=== PATIENT | male | born 1995 | race Caucasian/White ===

== ENCOUNTER → 2018-11-27 11:10 | Outpatient (CLI) | payer MEDICAID, SELFPAY ==
[2016-10-02 15:35] VITALS: BMI 21.6
[2018-11-29 12:17] LABS: Lamotrigine (Lamictal) Level 10.3 ug/mL (2.0-20.0); Topiramate 10.8 ug/mL (2.0-25.0)
== END ==
PROVIDERS: Referring Provider Psychiatry & Neurology Neurology; Visit Provider Psychiatry & Neurology Neurology
DX: G40.019 Localization-related (focal) (partial) idiopathic epilepsy and epileptic syndromes with seizures of localized onset, intractable, without status epilepticus (principal)
CPT/HCPCS: 36415; 80201; 82542

== ENCOUNTER → 2019-12-03 15:25 | Outpatient (CLI) | payer MEDICAID, SELFPAY ==
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
== END ==
PROVIDERS: Referring Provider Psychiatry & Neurology Neurology; Visit Provider Psychiatry & Neurology Neurology
DX: G40.019 Localization-related (focal) (partial) idiopathic epilepsy and epileptic syndromes with seizures of localized onset, intractable, without status epilepticus (principal)

== ENCOUNTER → 2020-01-13 14:44 | Outpatient (CLI) | payer MEDICAID, SELFPAY ==
--- NOTE | 2020-01-13 14:49 | CT_ITS ---
STUDY: CT BRAIN WITHOUT CONTRAST REASON FOR EXAM: Male, 24 years old. Epilepsy with seizures RADIATION DOSAGE (If Supplied By Facility): CTDIvol = ( 44.99 ) mGy, DLP = ( 849.54 ) mGycm TECHNIQUE: Transaxial CT imaging of the brain was performed without administration of intravenous contrast material. Individualized dose optimization techniques were used for this CT. COMPARISON: No relevant priors. FINDINGS: Normal soft tissue structures. Normal calvarium. Normal size ventricles and extra-axial spaces for the patient''s age. Normal white matter tracts of the cerebral hemispheres. Normal basal ganglia and thalami. Normal brainstem. Normal cerebellum. There is no intracranial hemorrhage. There are no findings of an acute ischemic infarction. Normal visualized paranasal sinuses. There is very limited pneumatization of the mastoids. There are small collections of cerumen in the bilateral external auditory canals. CT/Brain/Head without Contrast IMPRESSION: Normal unenhanced CT scan of the brain. Electronically Signed: Alejandro Hill MD at 16:44 EDT , Service support ,
== END ==
PROVIDERS: Referring Provider Psychiatry & Neurology Neurology; Visit Provider Psychiatry & Neurology Neurology
DX: G40.019 Localization-related (focal) (partial) idiopathic epilepsy and epileptic syndromes with seizures of localized onset, intractable, without status epilepticus (principal)
CPT/HCPCS: 70450

== ENCOUNTER 2021-02-10 18:40 | Emergency (ER) | payer MEDICAID, SELFPAY ==
[2021-02-10 18:41] VITALS: BP 127/79; PULSE 130; RESP 18; TEMP 36.2; O2SAT 99; BMI 30.7
--- NOTE | 2021-02-10 18:47 | ED.RN ---
THIS RN CALLED PT PARENTS TO VERIFY THAT PT HAS NO ALLERGIES. PHONE NUMBER [phone].
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
--- NOTE | 2021-02-10 20:17 | CM.ED ---
SOCIAL WORK Crisis updated on patient. Crisis to be contacted once patient is medically cleared. Malka Hernandez, DISC INSPECTOR, PERINATAL COORDINATOR
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
[2021-02-10 21:29] VITALS: RESP 18
[2021-02-10 21:31] LABS: Absolute Lymphocyte Count 1.45 X10^3/uL (0.83-4.51); Absolute Neutrophil Count 5.6 X10^3/uL (2.0-7.7); Basophil# 0.02 X10^3/uL; Basophil% 0.3 % (0-1); Eosinophil# 0.09 X10^3/uL; Eosinophils% 1.2 % (0-5); Hematocrit 41.2 % (40-54); Lymphocyte # 1.45 X10^3/ul (0.83-4.51); Lymphocyte % 18.8 % (19-41); Mean Corpuscular Hgb 28.3 pg (27.0-32.0); Mean Corpuscular Volume 83.4 fL (80-94); Mean Platelet Vol. 9.4 fl (6.2-12.0); Monocyte# 0.52 X10^3/uL; Monocyte% 6.7 % (0-10); NRBC Flagged by Analyzer 0 % (0-5); Neutrophil # 5.58 X10^3/uL (2.7-7.7); Neutrophil % 72.4 % (47-70); Platelet Count 256 K/mm3 (150-450); RBC Distribution Width CV 12.7 % (11.6-14.6); RBC Distribution Width SD 38.5 fl (35.1-43.9); Red Blood Count 4.94 M/mm3 (4.6-6.2); White Blood Count 7.7 K/mm3 (4.4-11.0)
[2021-02-10 21:44] LABS: Alcohol, Blood (Medical)-Serum < 3.0 mg/dL
[2021-02-10 21:45] LABS: Anion Gap 8 (5-15); BUN 16 mg/dL (7-18); BUN/Creat Ratio 14.5 RATIO (10-20); Calcium,Total 8.5 mg/dL (8.5-10.1); Chloride 113 mmol/L (98-107); EST Glomerular Filtration Rate 86 mL/min (>60); Est Glom Filt Rate - Afr Amer 105 mL/min (>60); Estimated Creatinine Clearance 92.64 ml/min; Glucose 96 mg/dL (74-106); Potassium 3.6 mmol/L (3.5-5.1); Sodium Level 141 mmol/L (136-145)
[2021-02-10] MEDS: Haloperidol Lactate 5 MG/ML Vial 10 MG IM (22:44)
[2021-02-10] MEDS: LORazepam 2 MG/ML Syringe 1 MG IM (22:44)
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
[2021-02-10 23:06] VITALS: RESP 18
[2021-02-11] VITALS (18 sets, daily range): BP systolic 124–142; BP diastolic 60–96; PULSE 78–119; RESP 12–18; O2SAT 93–96
[2021-02-11 00:21] LABS: Amphetamine Urine VISTA POSITIVE (<1000 ng/mL); Barbiturate Urine VISTA NEGATIVE (< 200 ng/mL); Benzodiazepine Urine VISTA NEGATIVE (< 200 ng/mL); Cocaine Urine VISTA NEGATIVE (< 300 ng/mL); Ecstacy Urine VISTA NEGATIVE (< 500 ng/mL); Methadone Urine VISTA NEGATIVE (< 300 ng/mL); PCP Urine VISTA NEGATIVE (< 25 ng/mL); THC Urine VISTA NEGATIVE (< 50 ng/mL); Vista UDS pH Range 5
--- NOTE | 2021-02-11 01:01 | ED.RN ---
CRISIS CALLED AND HE IS PENDING AT [facility]
--- NOTE | 2021-02-11 03:16 | ED.RN ---
PENDING AT [facility]
--- NOTE | 2021-02-11 07:42 | ED.RN ---
notified pt's fathercj that the pharmancy does not carry VYvance and asked the father if he could bring the med in for the pt and he said he would.
[2021-02-11] MEDS: Topiramate 200 MG Tablet PO (09:23)
[2021-02-11] MEDS: levETIRAcetam 500 MG Tablet PO ×2 (09:24→20:46)
[2021-02-11] MEDS: cloNIDine HCl 0.2 MG Tablet PO (09:24)
[2021-02-11] MEDS: lamoTRIgine 150 MG Tablet 300 MG PO ×2 (09:24→20:44)
[2021-02-11] MEDS: Pregabalin 50 MG Capsule 100 MG PO ×2 (09:25→20:45)
--- NOTE | 2021-02-11 10:29 | CM.ED ---
SOCIAL WORK Call to Crisis for update, spoke with Yessi. Per Yessi, spoke with patient's SSA through the Board of who reports unable to provide any assistance as they have not followed through with services. Yessi reports patient's IQ is 50. Referral has been made to [facility]. Malka Hernandez, DIRECTOR SUPPLY CHAIN, CLINICAL RESEARCH DIRECTOR
--- NOTE | 2021-02-11 11:04 | ED.RN ---
FATHER BROUGHT IN HOME MEDICATION VYVANSE. MEDICATION SENT TO PHARMACY AND ORDERS OBTAINED FOR MEDICATION DOSING.
[2021-02-11] MEDS: LORazepam 2 MG/ML Syringe 1 MG IM (12:55)
[2021-02-11] MEDS: Haloperidol Lactate 5 MG/ML Vial IM (12:55)
--- NOTE | 2021-02-11 15:42 | CM.ED ---
SOCIAL WORK Call to patient's father to discuss efforts in placement and denials by hospitals. Father in agreement to referral to [facility]. Father inquiring about options if patient denied. All questions answered. Referral called and faxed to [facility] at this time. Per Crisis, patient has been declined by [facility]. Malka Hernandez, GRAZING EXAMINER, ONCOLOGY PATIENT NAVIGATOR
--- NOTE | 2021-02-11 15:46 | CM.ED ---
SOCIAL WORK Received call from [facility]. All questions answered regarding patient. Intake to review with physician and get back to this worker. Malka Hernandez, BULLDOZER OPERATOR, SENIOR WATER RESOURCES ENGINEER
--- NOTE | 2021-02-11 16:24 | CM.ED ---
SOCIAL WORK Call to [facility] to check on status of referral. Patient has been denied. Call to Peri with Crisis to update. Peri to call and discuss with patient's father. Staff updated. Malka Hernandez MSW, MULTI CARE TECHNICIAN
--- NOTE | 2021-02-11 19:51 | CM.ED ---
SOCIAL WORK Case has been conferenced with Peri from Jorge Luis, Dr. Martinez and patient's father. Patient has been declined from multiple hospitals. Peri from Crisis spoke with patient's father and encouraged follow up with [facility] for support and services. Patient is calm and cooperative. Patient wanting mom and dad and wanting to return home. Patient denies any suicidal or homicidal ideation. Dr. Martinez to provide script for PRN Ativan. Peri to have Psych Services follow up with patient on Sunday and both [facility] and this check writer salesperson to follow up with [facility]. Call to patient's father to discuss the above. Father in agreement with plan and will be in to transport patient home. Staff updated. Script for Ativan to be filled here prior to discharge. Plan: Home with family Malka Hernandez MSW, ALUMNI COORDINATOR
[2021-02-11] MEDS: QUEtiapine 100 MG Tablet 150 MG PO (20:45)
--- NOTE | 2021-02-17 12:54 | CM.ED ---
SOCIAL WORK Follow up phone call made to [facility] Teacher, Ayleen Perez ([phone]). Per Ayleen, patient and family were seen and assessment process is started to provide services. Ayleen reports has also reached out to Psych Services through [facility] to assist patient and family. Malka Hernandez, JUNIOR STAFF ACCOUNTANT,SUPERVISOR REWORK
== END 2021-02-11 20:58 | disposition home or self-care (01) ==
PROVIDERS: Emergency Medicine; Emergency Provider Student in an Organized Health Care Education/Training Program
DX: F31.9 Bipolar disorder, unspecified (principal)
CPT/HCPCS: 36415; 80048; 80307; 82077; 85025; 87426; 96372; 99283

== ENCOUNTER 2024-02-02 20:15 | Emergency (ER) | payer MEDICAID, SELFPAY ==
[2024-02-02] VITALS (14 sets, daily range): BP systolic 100–136; BP diastolic 52–96; PULSE 98–165; RESP 13–120; TEMP 36.7–37.3; O2SAT 94–98; BMI 33.1
--- NOTE | 2024-02-02 20:20 | CT_ITS ---
STUDY: CT BRAIN WITHOUT CONTRAST REASON FOR EXAM: Male, 28 years old. seizures/status RADIATION DOSAGE (If Supplied By Facility): CTDIvol = ( 44.99 ) mGy, DLP = ( 880.47 ) mGycm TECHNIQUE: Transaxial CT imaging of the brain was performed without administration of intravenous contrast material. Individualized dose optimization techniques were used for this CT. COMPARISON: 01/13/2020. FINDINGS: Normal soft tissue structures. Normal calvarium. Normal size ventricles and extra-axial spaces for the patient''s age. Normal white matter tracts of the cerebral hemispheres. Normal basal ganglia and thalami. Normal brainstem. Normal cerebellum. There is no intracranial hemorrhage. There are no findings of an acute ischemic infarction. Normal visualized paranasal sinuses. CT/Brain/Head without Contrast IMPRESSION: Normal unenhanced CT scan of the brain. Electronically Signed: Meme Walsh MD at 21:45 EDT Reading Location ID and State: [id number] / Tel , Service support ,
--- NOTE | 2024-02-02 20:21 | EKG12_ITS ---
Test Reason : R/O SEIZURES Blood Pressure : / mmHG Vent. Rate : 149 BPM Atrial Rate : 149 BPM P-R Int : 130 ms QRS Dur : 090 ms QT Int : 282 ms P-R-T Axes : -03 122 029 degrees QTc Int : 444 ms Critical Test Result: High HR Sinus tachycardia Right axis deviation CAN NOT RULE OUT Inferior infarct , age undetermined ABNORMAL ECG Confirmed by Roberto Mckeon ([id number]), staff editor CHARLEEN WALLACE ([id number]) on 02/04/2024 1:46:10 PM Referred By: Confirmed By:Roberto Mckeon
--- NOTE | 2024-02-02 20:23 | EDS_ITS ---
HPI History of Present Illness Chief Complaint: Seizure Informant: patient, family and EMS Narrative Narrative: 28-year-old male brought by EMS for clustering seizures for the past 30 minutes. They aborted just prior to arrival by giving the patient Versed 5 mg IM. According to the sister who provides all of the history, he has a history of seizures, he has them not infrequently but has never clustered like this. She describes grand mal seizures that would stop and pause without the ability for him to recover and then go back into another 1. He has been compliant with his medications, he is given them by family members. His not had nighttime medications yet, presents just after 1999. Was sitting at home watching videos on his tablet when this occurred. No recent illness or head injury. No recent changes to his medications. No new [id number] or prescription medications. Follows with neurology at [facility] in [place]. Sister states he does not use any illicit substances and is pretty much at home being monitored by his family. [facility] Medical History Seizure Bipolar disorder Home Medications ?Medication ?Instructions ?Recorded ?Last Taken ?Type clonidine HCl 0.1 mg 0.2 mg PO DAILY 11/07/14 02/02/24 History tablet,extended release,12 hr lamotrigine 200 mg tablet,extended 200 mg PO BID 11/07/14 02/02/24 History release 24 hr (Lamictal XR) lisdexamfetamine 60 mg capsule 20 mg PO DAILY 11/07/14 02/02/24 History (Vyvanse) quetiapine 50 mg tablet (Seroquel) See Rx Instructions PO QHS 11/07/14 02/02/24 History benztropine 1 mg tablet 1 mg PO DAILY 02/11/21 02/02/24 History hydroxyzine HCl 25 mg tablet 25 mg PO BID 02/11/21 02/02/24 History levetiracetam 500 mg tablet 500 mg PO BID 02/11/21 02/02/24 History (Keppra) topiramate 200 mg tablet 200 mg PO Q12H 02/11/21 02/02/24 History clonazepam 1 mg tablet 1 mg PO BID PRN PRN anxiety 02/02/24 Unknown History Allergy/AdvReac Type Severity Reaction Status Date / Time No Known Allergies Allergy Verified 02/02/24 20:21 Family History no significant family his Surgical History no surgical history Social History Smoking Status: Never smoker EXAM Physical Exam Const Vital Signs: 02/02/24 20:18 02/02/24 21:55 02/02/24 22:56 Temperature 98.1 F 98.1 F 99.1 F Temperature Source Temporal Temporal Temporal Pulse Rate 132 H 115 H 101 H Respiratory Rate 35 H 120 H 15 Blood Pressure 135/68 H 115/79 115/79 Blood Pressure Mean 90 91 91 Pulse Ox 94 98 98 Oxygen Delivery Method Room Air Room Air Room Air Positive well nourished and well developed General Appearance ED: well developed and NAD HEENT Reports moist mucous membranes normocephalic and atraumatic Eyes PERRL and EOMs intact bilaterally Neck full ROM and supple Resp normal respiratory effort and clear to auscultation bilaterally Cardio regular rate, regular rhythm and no murmurs Rate: tachycardic GI non-tender and non-distended Auscultation: normoactive bowel sounds Palpation: soft Back/Spine no CVA tenderness General Back: other FROM Extremity normal to inspection General Extremety ED: Negative for edema, pulses abnormal or tenderness General Extremity: Negative for edema or pulses abnormal Neuro Neuro Narrative: Stuporous, spontaneous breathing with intact gag, but basically unresponsive otherwise upon arrival. Skin no rashes or lesions noted and no wounds MDM MDM MDM Narrative Medical decision making narrative: Patient was monitored closely and we obtained labs, urinalysis to rule out infection, and a CT of the brain to rule out intracranial bleed or other [employer] causes of status epilepticus. I reviewed the images of the CT as well as the result, and I agree with it, it is negative for any acute. His urine shows no signs of infection. He has a mild leukocytosis but his lactate is very high, which I suspect is probably causing his bicarb of only 6 and an elevated anion gap. He has some ANKIT. Unsure if this is causing his seizure activity or not. In the meantime I gave him a dose of IV levetiracetam 750 mg, and his nightly Lamictal although that is oral only and he is not awake enough to take it yet. I reevaluated him several times, he is now 1.5 hours into his stay, and he is coming around very slowly. He has purposeful movements of his arms, he is opening his eyes but not talking or following any commands. HR down to 115, no ectopy. Given the fact he has been so slow to come around with regards to his level of consciousness, discussing with hospitalist for admission. He is protecting his airway at this time and I do not think he needs to be intubated. Hospitalist does not want to admit him here, he thinks the patient needs continuous EEG monitoring and transfer to a higher level of care. I checked with [facility] both [facility] and [place] do not have continuous EEG monitoring and therefore will not accept the patient based on this recommendation. I checked on him again. He is more alert. He has some dysarthria but is trying to speak. He follows some commands and is moving both upper extremities. GCS now = 13. I discussed with [facility], they have 3 facilities that have continuous EEG monitoring and none of them have any beds and/or wait listing patients. Therefore I am checking with [facility] but in the meantime we will observe the patient in the ED. Patient apparently removed his own IV. He got about half of the Keppra. I am having nursing see if he can sip some water since he is alert now, and if so he is going to take the Lamictal and his home dose of Keppra 500 mg. He has had no further seizure activity clinically here thus far. ED observation started at 2300 on 02/02/24, for further recovery from postictal state and will repeat lactic acid after IVF and keppra infusion. Repeat HR is 101. History & Record Review Discussion w/independent historian: EMS personnel and Family Lab Data Attestation: I reviewed the patient's lab results. Labs: Laboratory Results - last 24 hr 02/02/24 02/02/24 20:45 21:05 WBC 13.5 H RBC 4.29 L Hgb 11.8 L Hct 38.6 L MCV 90.0 MCH 27.5 MCHC 30.6 L RDW Std Deviation 41.4 RDW Coeff of Sheyla 12.6 Plt Count 343 MPV 9.3 Neut % (Auto) Not Reportable Absolute Neuts (auto) 6.3 Absolute Lymphs (auto) 6.21 H Total Counted 100 Neutrophils % (Manual) 44 L Band Neutrophils % 3 Lymphocytes % (Manual) 46 H Monocytes % (Manual) 6 Eosinophils % (Manual) 1 Diff Path Review May foll Platelet Estimate ADEQUATE RBC Morphology NORM C+C Sodium 136 Potassium 4.0 Chloride 105 Carbon Dioxide 6.0 L* Anion Gap 25 H BUN 10 Creatinine 1.81 H Estim Creat Clear Calc 64.94 Est GFR (MDRD) Af Amer 58 L Est GFR (MDRD) Non-Af 48 L BUN/Creatinine Ratio 5.5 L Glucose 237 H Lactic Acid 17.9 H* Calcium 9.2 Urine Color Yellow Urine Clarity Clear Urine pH 5.0 Ur Specific [place] 1.025 Urine Protein 100 H Urine Glucose (UA) Normal Urine Ketones 5 H Urine Occult Blood 25 H Urine Nitrite Negative Urine Bilirubin 1 H Urine Urobilinogen 1 H Ur Leukocyte Esterase Negative Urine RBC 0 SEEN Urine WBC 0-5 SEEN Ur Squamous Epith Cells 0 SEEN Urine Bacteria 0 SEEN Urine Mucus 0 SEEN Radiography Diagnostic Testing: Clinical Impression(s) from Imaging Studies Brain CT 02/02/24 20:20 IMPRESSION: Normal unenhanced CT scan of the brain. Electronically Signed: Meme Walsh MD at 21:45 EDT , Rhythm Strip Rhythm Strip: Sinus Tach Rate: 120 Ectopy: None EKG Initial EKG: Attestation: I personally reviewed and interpreted this EKG as follows: Interpretation: No Acute Injury Pattern and Sinus Tachycardia Management Discussion w/another healthcare provider: Hospitalist Discharge Plan Triage Chief Complaint: Seizure ED Provider: Juan J Kaur Dx/Rx/DC Orders Clinical Impression: Recurrent seizures, Seizure disorder, Acute lactic acidosis, Lethargy, ANKIT (acute kidney injury) Prescriptions: No Action quetiapine [Seroquel] 50 MG tablet See Rx Instructions PO QHS Rx Instructions: 400mg orally at bedtime; 50mg 3 times a day. lisdexamfetamine [Vyvanse] 60 MG capsule 20 mg PO DAILY lamotrigine [Lamictal XR] 200 MG tablet extended release 24hr 200 mg PO BID clonidine HCl 0.1 MG tablet extended release 12 hr 0.2 mg PO DAILY levetiracetam [Keppra] 500 mg Tablet 500 mg PO BID benztropine 1 mg Tablet 1 mg PO DAILY hydroxyzine HCl 25 mg Tablet 25 mg PO BID topiramate 200 mg Tablet 200 mg PO Q12H clonazepam 1 mg tablet 1 mg PO BID PRN PRN (Reason: anxiety) Primary Care Provider: Care Physician,No Primary Referrals: Care Physician,No Primary [Primary Care Provider] - Print Language: Vietnamese
[2024-02-02] MEDS: 0.9% Normal Saline (1000mL) 1,000 ML 999 ML IV (20:44)
[2024-02-02 20:55] LABS: Hematocrit 38.6 % (40-54); Hemoglobin 11.8 g/dL (13.0-16.5); Mean Corp Hgb Conc 30.6 g/dL (32-36); Mean Corpuscular Hgb 27.5 pg (27.0-32.0); Mean Platelet Vol. 9.3 fl (6.2-12.0); POSITIVE COUNT YES; POSITIVE DIFFERENTIAL YES; POSITIVE MORPHOLOGY YES; Platelet Count 343 K/mm3 (150-450); RBC Distribution Width CV 12.6 % (11.6-14.6); RBC Distribution Width SD 41.4 fl (35.1-43.9); Red Blood Count 4.29 M/mm3 (4.6-6.2); White Blood Count 13.5 K/mm3 (4.4-11.0)
[2024-02-02 20:56] LABS: Differential Indicated MANUAL DIFF
[2024-02-02 21:11] LABS: Anion Gap 25 (5-15); BUN 10 mg/dL (7-18); BUN/Creat Ratio 5.5 RATIO (10-20); Calcium,Total 9.2 mg/dL (8.5-10.1); Chloride 105 mmol/L (98-107); Creatinine, Serum 1.81 mg/dL (0.70-1.30); EST Glomerular Filtration Rate 48 mL/min (>60); Est Glom Filt Rate - Afr Amer 58 mL/min (>60); Estimated Creatinine Clearance 64.94 ml/min; Glucose 237 mg/dL (74-106); Sodium Level 136 mmol/L (136-145)
[2024-02-02 21:14] LABS: Bacteria 0 SEEN /hpf (None Seen); Mucous, Urine 0 SEEN /hpf (<or=2+); Red Blood Cells-Urine 0 SEEN /hpf (0-5); Squamous Epithelial Cells - UA 0 SEEN /hpf (0-5)
[2024-02-02 21:16] LABS: Color, Urine Yellow (Yellow); Glucose, Dipstick Normal (Normal); Ketone-Dipstick 5 mg/dl (Negative); Leukocyte Esterase-Dipstick Negative /ul (Negative); Nitrite-Dipstick Negative (Negative); Occult Blood-Urine 25 /ul (Negative); Protein-Dipstick 100 mg/dl (Negative); Specific Gravity, Urine 1.025 (1.002-1.030); Urine Clarity Clear (Clear); Urine Urobilinogen 1 mg/dl (Normal)
[2024-02-02 21:17] LABS: Eosinophil 1 % (0-5); Lymphocyte 46 % (19-41); Monocyte 6 % (0-10); Neutrophil-Band 3 % (0-5); Neutrophil-Segmented 44 % (47-70); Total Cells Counted 100 (MANUAL DIFF)
[2024-02-02 21:18] LABS: Platelet Estimate ADEQUATE (ADEQ); Red Cell Morphology NORM C+C NORMAL (NORM C&C)
[2024-02-02 21:20] LABS: Absolute Lymphocyte Count 6.21 X10^3/uL (0.83-4.51); Absolute Neutrophil Count 6.3 X10^3/uL (2.0-7.7)
[2024-02-02 21:27] LABS: Urine Bilirubin Dipstick 1 mg/dL (Negative)
[2024-02-02 21:28] LABS: White Blood Cells 0-5 SEEN /hpf (0-5)
[2024-02-02 21:35] LABS: Lactic Acid 17.9 mmol/L (0.4-1.9)
[2024-02-02] MEDS: levETIRAcetam IV 750 MG in 0.9% Normal Saline (100mL Bag) 100 ML 430 MG IV (22:51)
[2024-02-02] MEDS: lamoTRIgine 150 MG Tablet 300 MG PO (23:51)
--- NOTE | 2024-02-02 23:51 | EKG12_ITS ---
Test Reason : REPEAT Blood Pressure : / mmHG Vent. Rate : 094 BPM Atrial Rate : 094 BPM P-R Int : 154 ms QRS Dur : 094 ms QT Int : 364 ms P-R-T Axes : 039 058 058 degrees QTc Int : 455 ms Normal sinus rhythm Normal ECG Confirmed by Roberto Mckeon ([id number]), newspaper or periodical editor CHARLEEN WALLACE ([id number]) on 02/04/2024 1:46:47 PM Referred By: Confirmed By:Roberto Mckeon
[2024-02-02] MEDS: levETIRAcetam 500 MG Tablet PO (23:57)
[2024-02-03] VITALS (18 sets, daily range): BP systolic 96–163; BP diastolic 55–127; PULSE 78–140; RESP 12–20; TEMP 36.6–36.7; O2SAT 94–100
[2024-02-03 00:27] LABS: Anion Gap 9 (5-15); BUN 12 mg/dL (7-18); BUN/Creat Ratio 7.7 RATIO (10-20); Calcium,Total 8.5 mg/dL (8.5-10.1); Chloride 109 mmol/L (98-107); Creatinine, Serum 1.56 mg/dL (0.70-1.30); EST Glomerular Filtration Rate 56 mL/min (>60); Est Glom Filt Rate - Afr Amer 68 mL/min (>60); Estimated Creatinine Clearance 75.34 ml/min; Glucose 112 mg/dL (74-106); Potassium 3.4 mmol/L (3.5-5.1); Sodium Level 137 mmol/L (136-145)
[2024-02-03 00:30] LABS: Lactic Acid 1.8 mmol/L (0.4-1.9)
[2024-02-03] MEDS: Ondansetron 4 MG/2 ML Vial IV (00:42)
[2024-02-03] MEDS: Midazolam 2 MG/2 ML Syringe IV (00:42)
[2024-02-03] MEDS: levETIRAcetam IV 1,000 MG/100 ML BAG 400 MG IV (00:50)
[2024-02-03] MEDS: 0.9% Normal Saline (1000mL) 1,000 ML 999 ML IV (00:51)
[2024-02-03 00:52] LABS: Reflex Lactate? Y
--- NOTE | 2024-02-03 09:25 | NURSING ---
Pt was up ambulating in room without difficulty when he suddenly threw himself on the floor, hit head on the door and obtained a lac to the R forehead. VS taken and stable, pt lifted back into bed w/ assistance of several staff members. Pt did not lose consciousness during event and no seizure activity noted. All monitoring equip remains in place. Dr. Romero notified. [facility] to be entered.
--- NOTE | 2024-02-03 10:15 | ED.RN ---
Patient forehead cleaned up with saline. Bacitracin and bandaide applied.
--- NOTE | 2024-02-03 11:09 | ED.RN ---
CALLED FOR BED UPDATE, STILL NO NEURO BED. WILL CALL WHEN THEY DO. REQUESTED UPDATED VITALS, READ THEM MOST RECENT VITAL SIGNS
--- NOTE | 2024-02-03 14:16 | ED.RN ---
PATIENT WANDERING AROUND ROOM IN ADULT DIAPER. SECURITY RUDI AND THIS RN TO HELP PATIENT SAFELY GET BACK INTO BED AND DRESSED IN HOSPITAL GOWN
--- NOTE | 2024-02-03 14:18 | ED.RN ---
Talia stenographer secretary called [facility]. Per them, they are at full capacity and have no idea if they will have discharges today.
--- NOTE | 2024-02-03 14:27 | HP.PCM.HOS_ITS ---
HPI - General General Date of Admission: 02/03/24 Date of Service: 02/03/24 Chief Complaint: Acute seizures HPI Narrative ABDIAZIZ COKER, with a past medical history of intellectual delay, anxiety, is a 28 M who presents following recurrent seizures at home. Much of the history was provided by the mother. He has a history of grand mal seizures. He has been compliant with all medications. At the time of the seizures he was watching videos on his tablet. No recent changes in medications, no infections, no new [id number] medications. He follows up with neurology at [facility] in [place]. He is on medications predominantly consisted of clonidine, lamotrigine 200 mg, Vyvanse, quetiapine, benztropine, hydroxyzine, levetiracetam, topiramate, clonazepam. At the time of evaluation in the ED, Pulse 79, respiratory rate 16, blood pressure 140/74, satting well on room air, WBC 13.5, lactic acid 1.8, hemoglobin 11.8, platelet 343 potassium 3.4, sodium 137, creatinine 1.5, glucose 112, CT head was normal For further evaluation and management he has been accepted for transfer to [facility] but because of bed unavailability, he is being admitted for further management. [facility] Medical History Seizure Bipolar disorder Home Medications ?Medication ?Instructions ?Recorded ?Last Taken ?Type clonidine HCl 0.1 mg 0.2 mg PO DAILY 11/07/14 02/02/24 History tablet,extended release,12 hr lamotrigine 200 mg tablet,extended 200 mg PO BID 11/07/14 02/02/24 History release 24 hr (Lamictal XR) lisdexamfetamine 60 mg capsule 20 mg PO DAILY 11/07/14 02/02/24 History (Vyvanse) quetiapine 50 mg tablet (Seroquel) See Rx Instructions PO QHS 11/07/14 02/02/24 History benztropine 1 mg tablet 1 mg PO DAILY 02/11/21 02/02/24 History hydroxyzine HCl 25 mg tablet 25 mg PO BID 02/11/21 02/02/24 History levetiracetam 500 mg tablet 500 mg PO BID 02/11/21 02/02/24 History (Keppra) topiramate 200 mg tablet 200 mg PO Q12H 02/11/21 02/02/24 History clonazepam 1 mg tablet 1 mg PO BID PRN PRN anxiety 02/02/24 Unknown History Allergy/AdvReac Type Severity Reaction Status Date / Time No Known Allergies Allergy Verified 02/02/24 20:21 Family History no significant family his Surgical History no surgical history Social History Smoking Status: Never smoker ROS Review of Systems ROS Unobtainable: due to encephalopathy, due to endotracheal tube, due to mental condition, due to mental status and other Vital Signs Vital Signs Vital Signs: 02/02/24 20:18 02/02/24 21:00 02/02/24 21:03 Temperature 98.1 F Temperature Source Temporal Pulse Rate 132 H 127 H Respiratory Rate 35 H 31 H Blood Pressure 135/68 H 100/52 L Blood Pressure Mean 90 68 Pulse Ox 94 Oxygen Delivery Method Room Air 02/02/24 21:15 02/02/24 21:30 02/02/24 21:45 Temperature Temperature Source Pulse Rate 128 H 124 H Respiratory Rate 28 H 26 H Blood Pressure 106/59 L 115/56 L 115/79 Blood Pressure Mean 72 73 89 Pulse Ox Oxygen Delivery Method 02/02/24 21:55 02/02/24 22:00 02/02/24 22:30 Temperature 98.1 F Temperature Source Temporal Pulse Rate 115 H 111 H 102 H Respiratory Rate 120 H 22 H 17 Blood Pressure 115/79 Blood Pressure Mean 91 Pulse Ox 98 Oxygen Delivery Method Room Air 02/02/24 22:56 02/02/24 23:00 02/02/24 23:00 Temperature 99.1 F 98.1 F Temperature Source Temporal Temporal Pulse Rate 101 H 130 H 98 Respiratory Rate 15 16 19 H Blood Pressure 115/79 136/94 H Blood Pressure Mean 91 108 Pulse Ox 98 98 Oxygen Delivery Method Room Air Room Air 02/02/24 23:30 02/02/24 23:34 02/02/24 23:45 Temperature Temperature Source Pulse Rate 153 H 165 H Respiratory Rate 13 18 17 Blood Pressure 136/94 H 136/96 H Blood Pressure Mean 107 108 Pulse Ox Oxygen Delivery Method 02/03/24 00:00 02/03/24 00:00 02/03/24 01:00 Temperature 97.8 F Temperature Source Temporal Pulse Rate 140 H 91 Respiratory Rate 18 16 Blood Pressure 134/91 H 134/91 H 134/91 H Blood Pressure Mean 105 100 105 Pulse Ox 94 98 Oxygen Delivery Method Room Air Room Air 02/03/24 01:30 02/03/24 02:00 02/03/24 02:00 Temperature 97.8 F Temperature Source Temporal Pulse Rate 96 96 98 Respiratory Rate 15 14 14 Blood Pressure 143/97 H 143/97 H Blood Pressure Mean 112 111 Pulse Ox 96 Oxygen Delivery Method Room Air 02/03/24 02:30 02/03/24 03:00 02/03/24 04:00 Temperature Temperature Source Pulse Rate 88 102 H Respiratory Rate 12 16 Blood Pressure 115/93 H 152/99 H Blood Pressure Mean 100 113 Pulse Ox Oxygen Delivery Method 02/03/24 05:00 02/03/24 06:00 02/03/24 07:35 Temperature Temperature Source Pulse Rate 89 95 Respiratory Rate 18 18 16 Blood Pressure 163/103 H 136/90 H Blood Pressure Mean 119 105 Pulse Ox 98 97 Oxygen Delivery Method Room Air 02/03/24 09:32 02/03/24 10:00 02/03/24 11:00 Temperature 98.1 F Temperature Source Temporal Pulse Rate 95 93 93 Respiratory Rate 17 17 18 Blood Pressure 145/98 H 144/127 H 96/80 Blood Pressure Mean 113 132 85 Pulse Ox 96 96 95 Oxygen Delivery Method Room Air 02/03/24 12:00 02/03/24 13:00 02/03/24 14:00 Temperature Temperature Source Pulse Rate 82 78 79 Respiratory Rate 16 16 Blood Pressure 144/55 H 144/65 H 140/74 H Blood Pressure Mean 84 91 96 Pulse Ox 99 100 Oxygen Delivery Method Room Air Room Air Weight Weight: 205 lb 7.533 oz Body Mass Index (BMI) 33.1 Physical Exam Const Constitutional Narrative: AO x 0 HEENT normocephalic and head/scalp atraumatic Eyes PERRL Resp normal respiratory effort and no retractions Cardio regular rate and regular rhythm GI normal to inspection, nondistended, normoactive bowel sounds Neuro moves all extremities and no focal motor deficits Sensorium / Orientation: awake and alert Results Medical Records Data Attestation: I reviewed the patient's medical records Lab / Micro Data 02/02/24 20:45 02/02/24 23:47 Labs: Laboratory Results - last 24 hr 02/02/24 20:45: WBC 13.5 H, RBC 4.29 L, Hgb 11.8 L, Hct 38.6 L, MCV 90.0, MCH 27.5, MCHC 30.6 L, RDW Std Deviation 41.4, RDW Coeff of Sheyla 12.6, Plt Count 343, MPV 9.3, Neut % (Auto) Not Reportable, Absolute Neuts (auto) 6.3, Absolute Lymphs (auto) 6.21 H, Total Counted 100, Neutrophils % (Manual) 44 L, Band Neutrophils % 3, Lymphocytes % (Manual) 46 H, Monocytes % (Manual) 6, Eosinophils % (Manual) 1, Diff Path Review November, Platelet Estimate ADEQUATE, RBC Morphology NORM C+C, Sodium 136, Potassium 4.0, Chloride 105, Carbon Dioxide 6.0 L*, Anion Gap 25 H, BUN 10, Creatinine 1.81 H, Estim Creat Clear Calc 64.94, Est GFR (MDRD) Af Amer 58 L, Est GFR (MDRD) Non-Af 48 L, BUN/Creatinine Ratio 5.5 L, Glucose 237 H, Lactic Acid 17.9 H*, Calcium 9.2 02/02/24 21:05: Urine Color Yellow, Urine Clarity Clear, Urine pH 5.0, Ur Specific [place] 1.025, Urine Protein 100 H, Urine Glucose (UA) Normal, Urine Ketones 5 H, Urine Occult Blood 25 H, Urine Nitrite Negative, Urine Bilirubin 1 H, Urine Urobilinogen 1 H, Ur Leukocyte Esterase Negative, Urine RBC 0 SEEN, Urine WBC 0-5 SEEN, Ur Squamous Epith Cells 0 SEEN, Urine Bacteria 0 SEEN, Urine Mucus 0 SEEN 02/02/24 23:47: Sodium 137, Potassium 3.4 L, Chloride 109 H, Carbon Dioxide 19.0 L, Anion Gap 9, BUN 12, Creatinine 1.56 H, Estim Creat Clear Calc 75.34, Est GFR (MDRD) Af Amer 68, Est GFR (MDRD) Non-Af 56 L, BUN/Creatinine Ratio 7.7 L, G lucose 112 H, Lactic Acid 1.8, Calcium 8.5 Rhythm Strip Rhythm Strip: Sinus Tach Rate: 120 Ectopy: None Imaging Radiology Impression Brain CT 02/02/24 20:20 IMPRESSION: Normal unenhanced CT scan of the brain. Electronically Signed: Meme Walsh MD at 21:45 EDT Reading Location ID and State: [id number] / Tel , Service support , Assessment & Plan Assessment/Plan (1) Recurrent seizures: (2) Acute lactic acidosis: PLAN: Plan 28-year-old male with history of, seizures presents to the ED with concerns regarding status epilepticus yesterday. He was given lamotrigine, Keppra, and he midazolam Zofran and IV fluids in the ED with which his seizures have been controlled. He is awaiting a bed following approval at [facility] for further evaluation with EEG and neurology. #Status epilepticus: -Has a history of recurrent seizures but none lasting for more than 20 minutes -The seizure episode yesterday with almost 30 minutes -CT head has been normal -Continue clonidine 0.1 mg every 12 hours -Continue lamotrigine 200 mg every 24 hours -Continue Keppra 500 mg twice daily # ADHD: -Will hold Vyvanse for now as it can redue the seizure threshold #Anxiety -Continue hydroxyzine 25 mg twice daily -Clonazepam 1 mg as needed #Intellectual delay: Noted -Continue outpatient medications #Lactic acidosis: -In the setting of ongoing seizures -Has improved with fluid therapy #ANKIT on CKD: -Likely related to the ongoing status epilepticus -Repeat creatinine today has improved from 1.8-1.5 today # Hypokalemia -Tab KCl provided for replacement #DVT prophylaxis: -Low to moderate risk -Encourage mobilization Charges/Coding Visit Charges Inpatient E&M: 56592 Init Hosp L2
--- NOTE | 2024-02-03 18:14 | ED.RN ---
1814 ATTEMPTED TO CALL FOR NURSE TO NURSE REPORT. DISK OPERATOR STATED THAT THEY WOULD CALL BACK.
[2024-02-04 14:18] LABS: Pathologist Review Reviewed
== END 2024-02-03 18:06 | disposition short-term general hospital (02) ==
LOC: ED 23:13 → MS3 02-03 14:54
PROVIDERS: Emergency Medicine; Emergency Provider Internal Medicine; Visit Provider Internal Medicine
DX: G40.901 Epilepsy, unspecified, not intractable, with status epilepticus (principal); F31.9 Bipolar disorder, unspecified; N25.89 Other disorders resulting from impaired renal tubular function; N17.9 Acute kidney failure, unspecified; R47.1 Dysarthria and anarthria; E87.21 Acute metabolic acidosis; R00.0 Tachycardia, unspecified; F90.9 Attention-deficit hyperactivity disorder, unspecified type; F41.9 Anxiety disorder, unspecified; F79 Unspecified intellectual disabilities; E87.6 Hypokalemia; N18.9 Chronic kidney disease, unspecified
CPT/HCPCS: 51701; 70450; 80048; 81001; 83605; 85025; 93005; 99285; P9612; J2405